=== PATIENT | female | born 1990 | race American Indian/Alaskan Native ===

== ENCOUNTER 2019-04-22 16:44 | Emergency (ER) | payer SELFPAY ==
[2019-04-22 16:55] VITALS: BP 109/74
[2019-04-22 19:37] LABS: HCG Qualitative,Urine Negative (Negative)
[2019-04-22 19:38] LABS: Color,Urine Yellow (Yellow)
[2019-04-22 19:39] LABS: Bilirubin,Urine NEG (Negative); Blood,Urine NEG (Negative); Mucus,Urine 2+ /HPF; Protein,Urine <15 mg/dL mg/dL (Negative); Urobilinogen,Urine < 2.0 mg/dL (<2.0)
--- NOTE | 2019-04-22 19:40 | Emergency Department Report ---
ED Female HPI - General Chief complaint: Urogenital-Female Stated complaint: RT SIDE CHEST LUMP/VAGINAL ISSUES Time Seen by Provider: 04/22/19 18:45 Source: patient Mode of arrival: Ambulatory Limitations: No Limitations - History of Present Illness Initial comments: Mrs. Florence 28-year-old female who presents with vaginal discharge going on about 2 days. Pt denies abd pain no fever or chills no n/v.Statyates last contact 4 days ago. Partner states dysuria. there are no relieving or exacerbating factors. MD Complaint: vaginal discharge, possible STD Onset/Timin -: days(s) Location: perineum Radiation: non-radiating Severity: moderate Severity scale (0 -10): 5 Quality: burning, other (itching ) Consistency: intermittent Improves with: none Worsens with: none Are you Now?: No Last Menstrual Period: 04/15/19 EDC: 01/20/20 Associated Symptoms: vaginal discharge. denies: vaginal bleeding, abdominal pain, nausea/vomiting, fever/chills, dysuria, hematuria, rash - Related Data Sexually active: Yes : 1 Para: 1 A: 0 Previous Rx's Medication Instructions Recorded Last Taken Type Clindamycin [Clindamycin CAP] 300 mg PO Q8H #30 cap 06/06/13 09/10/13 01:00 Rx 1 HYDROcodone/ACETAMINOPHEN [Rheems 1 each PO Q4-6H #20 tablet 09/13/13 Unknown Rx 5/325 Tablet] Ibuprofen [Motrin 600 MG tab] 600 mg PO Q8H PRN #30 tablet 09/13/13 Unknown Rx #103/Iron Fumarate/FA 1 each PO QDAY #90 tab 09/13/13 Unknown Rx [ ] metroNIDAZOLE [Flagyl] 500 mg PO BID 10 Days #20 tab 04/22/19 Unknown Rx Allergies Allergy/AdvReac Type Severity Reaction Status Date / Time No Known Allergies Allergy Verified 09/11/13 14:24 ED Review of Systems ROS: Stated complaint: RT SIDE CHEST LUMP/VAGINAL ISSUES Other details as noted in HPI Constitutional: denies: chills, fever Eyes: denies: eye pain, eye discharge, vision change ENT: denies: ear pain, throat pain Respiratory: denies: cough, shortness of breath, wheezing Cardiovascular: denies: chest pain, palpitations Endocrine: no symptoms reported Gastrointestinal: denies: abdominal pain, nausea, diarrhea Genitourinary: discharge. denies: urgency, dysuria, frequency, hematuria Musculoskeletal: denies: back pain, joint swelling, arthralgia Skin: denies: rash, lesions Neurological: denies: headache, weakness, paresthesias Psychiatric: denies: anxiety, depression Hematological/Lymphatic: denies: easy bleeding, easy bruising ED Past Medical Hx - Past Medical History Previous Medical History?: No Hx Hypertension: No Hx Congestive Heart Failure: No Hx Diabetes: No Hx Deep Vein Thrombosis: No Hx Renal Disease: No Hx Sickle Cell Disease: No Hx Seizures: No Hx Asthma: No Hx COPD: No Hx HIV: No - Surgical History Past Surgical History?: No - Social History Smoking Status: Never Smoker Substance Use Type: None - Medications Home Medications: Home Medications Medication Instructions Recorded Confirmed Last Taken Type Clindamycin [Clindamycin CAP] 300 mg PO Q8H #30 cap 06/06/13 09/11/13 09/10/13 01:00 Rx 1 HYDROcodone/ACETAMINOPHEN [Rheems 1 each PO Q4-6H #20 tablet 09/13/13 Unknown Rx 5/325 Tablet] Ibuprofen [Motrin 600 MG tab] 600 mg PO Q8H PRN #30 tablet 09/13/13 Unknown Rx #103/Iron Fumarate/FA 1 each PO QDAY #90 tab 09/13/13 Unknown Rx [ ] metroNIDAZOLE [Flagyl] 500 mg PO BID 10 Days #20 tab 04/22/19 Unknown Rx ED Physical Exam - General Limitations: No Limitations General appearance: alert, in no apparent distress - Head Head exam: Present: atraumatic, normocephalic - Eye Eye exam: Present: normal appearance, PERRL, EOMI Pupils: Present: normal accommodation - ENT ENT exam: Present: mucous membranes moist - Neck Neck exam: Present: normal inspection - Respiratory Respiratory exam: Present: normal lung sounds bilaterally, chest wall tenderness. Absent: respiratory distress - Cardiovascular Cardiovascular Exam: Present: regular rate, normal rhythm. Absent: systolic murmur, diastolic murmur, rubs, gallop - GI/Abdominal GI/Abdominal exam: Present: soft, normal bowel sounds. Absent: distended, tenderness - Rectal Rectal exam: Present: deferred - External exam: Present: erythema. Absent: swelling, lesions, lacerations, bleeding Speculum exam: Present: erythema, vaginal discharge (yellow green malodorous ). Absent: cervical discharge, vaginal bleeding, foreign body, tissue, laceration Bi-manual exam: Absent: cervical motion tendernes - Extremities Exam Extremities exam: Present: normal inspection, full ROM, normal capillary refill - Back Exam Back exam: Present: normal inspection, full ROM. Absent: tenderness, CVA tenderness (R), CVA tenderness (L), rash noted - Neurological Exam Neurological exam: Present: alert, oriented X3, CN II-XII intact, normal gait - Psychiatric Psychiatric exam: Present: normal affect, normal mood - Skin Skin exam: Present: warm, dry, intact, normal color. Absent: rash ED Course Vital Signs 04/22/19 16:54 Temperature 97.3 F L Pulse Rate 81 Respiratory 16 Rate Blood Pressure 109/74 O2 Sat by Pulse 100 Oximetry ED Medical Decision Making - Medical Decision Making pt decline ua or hcg stating she cannot void and cannot wait for results, plan for tx for sti exposure, follow up with supervisor shipping for hiv and hsv screening. will dc with rx for flagyl po. pt verbalized agreement and understanding of dc instructions. Critical care attestation.: If time is entered above; I have spent that time in minutes in the direct care of this critically ill patient, excluding procedure time. ED Disposition Clinical Impression: STI (sexually transmitted infection) Disposition: DC-01 TO HOME OR SELFCARE Is pt being admited?: No Does the pt Need Aspirin: No Condition: Stable Instructions: Sexually Transmitted Diseases (ED) Prescriptions: metroNIDAZOLE [Flagyl] 500 mg PO BID 10 Days #20 tab Referrals: RANDY GAYLE MD [Staff Physician] - 3-5 Days Forms: Work/School Release Form(ED) Time of Disposition: 20:10
[2019-04-22] MEDS ORDERED: AZITHROMYCIN 250 MG TAB PO ONE (19:57)
[2019-04-22] MEDS ORDERED: LIDOCAINE-MPF (1%) 10 MG/1 ML VIAL 5 ML INFILTRATI ONE (19:57)
[2019-04-22] MEDS ORDERED: FLUCONAZOLE 100 MG TAB PO ONE (20:15)
== END 2019-04-22 21:00 | disposition home or self-care (01) ==
LOC: ED 16:44
DX: A64 Unspecified sexually transmitted disease (principal); Z79.899 Other long term (current) drug therapy
CPT/HCPCS: 81001; 81025; 87210; 87591; 96372; 99283; J0696

== ENCOUNTER 2019-04-25 16:18 | Emergency (ER) | payer SELFPAY ==
--- NOTE | 2019-04-25 17:12 | Event Note ---
ED Screening Note Date of service: 04/25/19 Time: 17:09 ED Screening Note: This is a 28 y.o. F. that presents to the ER with a left chest wall non-tender and vaginal pruritus for 3 days. States mass to left chest wall for 1 month. This initial assessment/diagnostic orders/clinical plan/treatment(s) is/are subject to change based on patients health status, clinical progression and re- assessment by fellow clinical providers in the ED. Further treatment and workup at subsequent clinical providers discretion. Patient/guardian urged not to elope from the ED as their condition may be serious if not clinically assessed and managed. Initial orders include: Labs
[2019-04-25 18:32] LABS: Bilirubin,Urine NEG (Negative); Blood,Urine NEG (Negative); Color,Urine Yellow (Yellow); Mucus,Urine 3+ /HPF; Urobilinogen,Urine < 2.0 mg/dL (<2.0)
[2019-04-25 18:34] LABS: HCG Qualitative,Urine Negative (Negative)
--- NOTE | 2019-04-25 19:06 | Event Note ---
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 She had extensive and thorough workup performed, including gonorrhea, chlamydia, urinalysis, and wet prep. She was discharged with fluconazole and metronidazole, neither of which she is taking. Her wet prep was basically negative. No yeast, trichomoniasis, or clue cells were noted. Gonorrhea and chlamydia were excluded. She does not endorse any irritative or obstructive urinary symptoms. She is found to be negative on please see test, today and yesterday. She also endorses left-sided superior medial breast enlargement, present for 6 weeks. On exam, she is afebrile with reassuring vital signs. There is no breast, redness, tenderness, pus or streaking. There is no abscess. Her external gynecologic exam is unremarkable for significant findings. This patient does not have an emergent medical condition at this time. She'll need to follow up with an outpatient blue print control clerk. Based off of the left prep results, she does not require metronidazole. The extraocular movements are intact bilaterally. There is no facial droop. The tongue is midline. Phonating in normal sentences. Hearing is intact grossly. Walking with a steady gait. 5/5 strength with 4 extremities. Sensation intact to light touch in 4 extremities. Appropriate thought content. GCS 15. 2+ pulses noted in the bilateral upper and lower extremities. There is no long bony tenderness. The pelvis is stable. The muscular compartments are soft. There is no palpable cord. S1, S2, regular rate and rhythm. No murmurs, rubs or gallops. Breath sounds clear to auscultation bilaterally. Head and neck unremarkable. External gynecologic exam unremarkable. Lab Results 04/25/19 Range/Units Unknown Urine Color Yellow (Yellow) Urine Turbidity Clear (Clear) Urine pH 6.0 (5.0-7.0) Ur Specific Dante 1.027 (1.003-1.030) Urine Protein 30 mg/dl (Negative) mg/dL Urine Glucose (UA) Neg (Negative) mg/dL Urine Ketones Neg (Negative) mg/dL Urine Blood Neg (Negative) Urine Nitrite Neg (Negative) Urine Bilirubin Neg (Negative) Urine Urobilinogen < 2.0 (<2.0) mg/dL Ur Leukocyte Esterase Sm (Negative) Urine WBC (Auto) 2.0 (0.0-6.0) /HPF Urine RBC (Auto) 2.0 (0.0-6.0) /HPF U Epithel Cells (Auto) 5.0 (0-13.0) /HPF Urine Mucus 3+ /HPF Urine HCG, Qual Negative (Negative) Initial orders include: Vital Signs 04/25/19 19:12 Temperature 98.1 F Pulse Rate 71 Respiratory 16 Rate Blood Pressure 100/70 [Left] O2 Sat by Pulse 100 Oximetry
[2019-04-25 19:50] VITALS: BP 140/78
== END 2019-04-25 20:54 | disposition home or self-care (01) ==
LOC: ED 16:18
DX: N89.8 Other specified noninflammatory disorders of vagina (principal)
CPT/HCPCS: 81001; 81025; 99283